=== PATIENT | male | born 1980 | race Caucasian/White ===

== ENCOUNTER 2021-04-10 19:55 | Emergency (ER) | payer BC, SELFPAY ==
[~2021-04-10] VITALS: Ht 167.6 cm; Wt 89.8 kg
[2021-04-10 20:00] VITALS: BP_SYST 164
--- NOTE | 2021-04-10 20:00 | NUR ---
Patient triaged and placed in waiting room. VSS and patient appears in no acute distress at this time. Accompanied by FAM MEMBER, awaiting available bed, and MD notified of need for MSE.
--- NOTE | 2021-04-10 20:50 | NUR ---
Patient to [facility] chair to [facility] for evaluation. Side rails up. Report given to Hyun DENIS.
--- NOTE | 2021-04-10 21:03 | NUR ---
ER Dr. Webber at bedside examining patient.
[2021-04-10] MEDS ORDERED: BACITRACIN 1 GM OINT TP ONE (21:08)
--- NOTE | 2021-04-10 21:15 | NUR ---
Dr. Webber at bedside irrigating and cleaning avulsion. Pressure dressing applied by Dr. Webber
--- NOTE | 2021-04-10 21:35 | NUR ---
Patient given written and verbal discharge instructions and verbalizes understanding. ER MD discussed with patient the results and treatment provided. Patient in stable condition. ID arm band removed. No IV No Rx given. Patient educated on pain management and to follow up with PMD. Pain Scale 0/10. Opportunity for questions provided and answered. Medication side effect fact sheet provided.
--- NOTE | 2021-04-11 02:01 | NUR ---
Patient called ER requesting medication for pain. Patient stated "I need pain killers". Patient informed MD that saw him as a patient earlier is no longer working and unable to prescribed narcotics over the phone. Patient became aggravated and began yelling into the phone "oh you will give me pain medication or I will come down there and make you" and proceeded to yell profanities.
[2021-04-11] MEDS ORDERED: TRAM50TA PO ×5 (12:50→12:59)
== END 2021-04-10 21:35 | disposition home or self-care (01) ==
LOC: SED 19:55
DX: S61.212A Laceration without foreign body of right middle finger without damage to nail, initial encounter (principal); Z79.899 Other long term (current) drug therapy; W45.8XXA Other foreign body or object entering through skin, initial encounter; Y93.89 Activity, other specified; Y92.89 Other specified places as the place of occurrence of the external cause; Y99.8 Other external cause status
CPT/HCPCS: 99282

== ENCOUNTER 2021-04-11 12:10 | Emergency (ER) | payer BC, SELFPAY ==
[~2021-04-11] VITALS: Ht 167.6 cm; Wt 89.8 kg
[2021-04-11 12:10] VITALS: BP_SYST 146
--- NOTE | 2021-04-11 12:10 | NUR ---
Patient to ER bed 8 for evaluation. Side rails up. Assumed care.
--- NOTE | 2021-04-11 12:10 | NUR ---
Pt. came in for a wound recheck to right middle finger, cut it last night on an unknown object came in finger was cleaned and wrapped and was told to come in today for a wound recheck
--- NOTE | 2021-04-11 12:24 | NUR ---
ER at bedside examining patient.
--- NOTE | 2021-04-11 12:47 | NUR ---
wound cleaned with NS, dermabond applied and finger dressed with non adhesive dressing
[2021-04-11] MEDS ORDERED: TRAM50TA PO ×5 (12:50→12:59)
[2021-04-11 13:09] VITALS: BP_SYST 136
--- NOTE | 2021-04-11 13:10 | NUR ---
Patient given written and verbal discharge instructions and verbalizes understanding. ER discussed with patient the results and treatment provided. Patient in stable condition. ID arm band removed. Rx of Tramadol given. Patient educated on pain management and to follow up with PMD. Pain Scale 1. Opportunity for questions provided and answered. Medication side effect fact sheet provided.
== END 2021-04-11 13:10 | disposition home or self-care (01) ==
LOC: SED 12:10
DX: S61.202A Unspecified open wound of right middle finger without damage to nail, initial encounter (principal); Z88.5 Allergy status to narcotic agent; X58.XXXA Exposure to other specified factors, initial encounter; Y93.89 Activity, other specified; Y92.89 Other specified places as the place of occurrence of the external cause; Y99.8 Other external cause status
CPT/HCPCS: 99283